=== PATIENT | male | born 1965 | race Caucasian/White ===

== ENCOUNTER 2019-11-24 07:43 | Outpatient (CLI) | payer OTHER ==
[~2019-11-24] VITALS: Ht 182.9 cm; Wt 96.8 kg
[2019-11-24 08:16] LABS: BASOPHILS 0.3 % (0-2); CALC OSMOLALITY 278 mosm/kg (275-300); CALCIUM 8.9 mg/dL (8.5-10.1); CARBON DIOXIDE 29.9 mmol/L (21.0-32.0); CHLORIDE - SERUM 106 mmol/L (98-107); CREATININE - SERUM 0.9 mg/dL (0.6-1.3); EOSINOPHILS 0.6 % (0-7); GLUCOSE 108 mg/dL (74-106); HEMOGLOBIN 16.1 g/dL (13.5-17.5); IMMATURE GRANULOCYTES 0.1 % (0-5); LYMPHOCYTES 33.5 % (15-50); MCHC 32.9 g/dL (31.0-37.0); MCV 91.2 fL (80.0-100.0); MEAN PLATELET VOLUME 11.4 fL (7.4-10.4); MONOCYTES 8.9 % (2-11); NEUTROPHILS 56.6 % (40-80); PLATELET COUNT 144 10x3/uL (130-400); POTASSIUM - SERUM 4.1 mmol/L (3.5-5.1); RBC 5.37 10x6/uL (4.20-6.10); RDW 13.5 % (11.5-14.5); SODIUM 140 mmol/L (136-145); UREA NITROGEN 9 mg/dL (7-18); WBC 6.9 10x3/uL (4.8-10.8); eGFR NON AFRICAN AMERICAN > 90 mL/min (90-120)
[2019-11-24 08:17] LABS: APTT 30.7 SECONDS (22.8-39.4); INR 0.94 (0.85-1.17); PROTIME 12.6 SECONDS (11.6-15.0)
[2019-11-24] MEDS ORDERED: CRESTOR20 MG PO (08:21)
[2019-11-24] MEDS ORDERED: PEPCID40 MG PO (08:21)
[2019-11-24] MEDS ORDERED: COZAAR50 MG PO (08:22)
[2019-11-24] MEDS ORDERED: VITAMIN D5000 UNI3 PO (08:23)
[2019-11-24 08:33] VITALS: BP 169/87; Ht 182.9 cm; Wt 96.8 kg
--- NOTE | 2019-11-24 11:10 | NUR ---
PT REC'D TO ROOM 6 VIA STRETCHER FROM IR. PT AWAKE AND ORIENTED. MONITORS ESTAB. SEE [place] DAUBER. ALARMS ON AND C/L IN REACH.
--- NOTE | 2019-11-24 11:25 | NUR ---
PT SITTING UP IN BED, TOLERATING LIQUIDS. DSG TO BACK C/D/I. PT DENIES PAIN OR NEEDS.
--- NOTE | 2019-11-24 11:55 | NUR ---
VSS, DSG TO BACK C/D/I. PT DENIES PAIN OR NEEDS.ALARMS ON AND C/L IN REACH.
--- NOTE | 2019-11-24 12:15 | NUR ---
PT VSS. DSG TO BACK C/D/I. PT DENIES PAIN OR NEEDS. ALARMS ON AND C/L IN REACH.
--- NOTE | 2019-11-24 12:15 | NUR ---
PT UP TO BR INDEPENDENTLY, BACK TO BED. DSG TO BACK C/D/I. VSS, PT REFUSED SANDWICH TRAY. ALARMS ON AND C/L IN REACH.
--- NOTE | 2019-11-24 13:15 | NUR ---
DSG TO BACK C/D/I, NO S/S BLEEDING OR SWELLING. VSS. PIV D/C'D INTACT. ALL D/C INSTRUCTIONS REVIEWED WITH PT. PT VERBALIZES UNDERSTANDING.
--- NOTE | 2019-11-24 13:20 | NUR ---
PT UP AND DRESSED. VERBALIZES WANTING TO BE D/C'D NOW. SPOKE WITH DR. CORONADO'S NURSE, ANUP, AFSHIN'D TO D/C AT [id number]
--- NOTE | 2019-11-24 13:30 | NUR ---
PT D/C'D VIA WC TO PRIVATE VEHICLE, PT HAS ALL BELONGINGS AND PAPERWORK.
== END 2019-11-24 13:30 | disposition home or self-care (01) ==
LOC: D.CATH 07:43 → D.RAD 10:00 → D.CATH 13:30
PROVIDERS: Radiology Vascular & Interventional Radiology; ATTEND Internal Medicine Medical Oncology
DX: R19.09 Other intra-abdominal and pelvic swelling, mass and lump (principal); K21.9 Gastro-esophageal reflux disease without esophagitis; I10 Essential (primary) hypertension; E78.5 Hyperlipidemia, unspecified; Z72.0 Tobacco use